=== PATIENT | female | born 1945 | race Caucasian/White ===

== ENCOUNTER 2022-07-23 16:22 | Inpatient (IN) | payer MEDICARE ==
[~2022-07-23] VITALS: Ht 162.6 cm; Wt 56.7 kg
[2022-07-23 16:41] VITALS: BP 120/40
--- NOTE | 2022-07-23 17:22 | NUR ---
patient admitted from [facility], alert, oriented x4, no sob, respiration are even nonlabored, dr Andrew made aware to do admission orders, and patient stated she has no home med list with her, she is going to try to get it from her later. no acute distress note at this time.
[2022-07-23] MEDS ORDERED: HEPA500034 (17:29)
[2022-07-23] MEDS ORDERED: ASPI-612 PO (17:29)
[2022-07-23] MEDS ORDERED: CEFT2VIA14 IV (17:30)
[2022-07-23] MEDS ORDERED: IPRA3AMP23 IH (17:31)
[2022-07-23] MEDS ORDERED: ONDANSETRON 4 MG/2 ML VIAL IV PRN (18:00)
[2022-07-23] MEDS ORDERED: MAGNESIUM HYDROXIDE 30 ML LIQUID UDC PO PRN (18:00)
[2022-07-23] MEDS ORDERED: ALBUTEROL SULFATE 1.25 MG/3 ML NEBU NEB PRN (18:00)
[2022-07-23] MEDS ORDERED: IPRATROPIUM BROMIDE 0.5 MG/2.5 ML NEBU NEB PRN (18:00)
[2022-07-23] MEDS ORDERED: DOCUSATE SODIUM 100 MG CAPSULE PO PRN (18:00)
[2022-07-23 18:30] LABS: HEMATOCRIT 24.9 % (31.2-41.9); MEAN CORPUSCULAR HEMOGLOBIN 38.6 uug (24.7-32.8); MEAN CORPUSCULAR VOLUME 118.6 fL (75.5-95.3); PLATELET COUNT (AUTO) 251 K/uL (179-408)
[2022-07-23 18:36] LABS: CREATININE 0.9 mg/dL (0.6-1.3); POTASSIUM 4.1 mmol/L (3.5-5.1)
[2022-07-23 18:40] LABS: MAGNESIUM 1.9 mg/dL (1.8-2.4); PHOSPHOROUS 3.3 mg/dL (2.5-4.9)
[2022-07-23] MEDS ORDERED: VANCOMYCIN IV 1,000 MG in IV DEXTROSE 5% 250 ML IV ONE (19:00)
--- NOTE | 2022-07-23 19:53 | NUR ---
Endorsed to next shift accordingly for pending admission.
[2022-07-23 20:00] VITALS: BP 124/68
[2022-07-23] MEDS: PIPERACILLIN SODIUM/TAZOBACTAM 3.375 G in IV DEXTROSE 5% 50 ML IV SCH ×2 (20:00→22:00)
[2022-07-23] MEDS: HEPARIN SODIUM,PORCINE 5,000 UNITS/ML VIAL SQ SCH (21:00)
[2022-07-23] MEDS: FOLIC ACID 1 MG TABLET PO SCH (21:45)
[2022-07-23] MEDS: CYANOCOBALAMIN 1,000 MCG TABLET PO SCH (21:45)
[2022-07-23] MEDS: THIAMINE HCL 100 MG TABLET PO SCH (21:45)
[2022-07-23] MEDS: methylPREDNISolone SOD SUCC 40 MG/ML VIAL IV SCH (22:30)
[2022-07-23] MEDS: PANTOPRAZOLE SODIUM 40 MG TABLET.DR PO SCH (22:50)
[2022-07-23] MEDS ORDERED: SOD FERRIC GLUC COMPLX/SUCROSE 125 MG in IV NORMAL SALINE 100 ML IV SCH (23:00)
[2022-07-24] VITALS (11 sets, daily range): BP systolic 123–157; BP diastolic 42–70
[2022-07-24] MEDS: PANTOPRAZOLE SODIUM 40 MG TABLET.DR PO SCH (06:28)
[2022-07-24] MEDS ORDERED: VANCOMYCIN IV 1,000 MG in IV DEXTROSE 5% 250 ML IV ONE (08:00)
[2022-07-24] MEDS ORDERED: CARVEDILOL 3.125 MG TABLET PO SCH (08:00)
--- NOTE | 2022-07-24 08:25 | NUR ---
SHIFT NOTE: RECEIVED HALF REPORT FROM AM NURSE PT SKIN IS ECCYMOSIS IN RT AND LT LOWER ARMS, AND RT LEGS HAS A SKIN TEAR PT HAS HX OF BREAST CA RT. DR RICHTER VISITED PATIENT AND ORDERED 1 UNIT OF PRBC'S PT HGB IS 8.1 NO SIGN RESPIRATORY DISTRESS NOTE: PT REQUESTED FOOD WHILE DR IN ROOM GAVE PT A HAM SANDWICH AND JUICE. PT HAS 02 2l NASAL CANNULA. PT ALSO HAS A RT BREAST CA INFORMED AM NURSE NO VITALS OR BLOOD DRAW. ENDORSED TO AM NURSE SHIFT FINDING
[2022-07-24 08:34] LABS: HEMATOCRIT 22.1 % (31.2-41.9)
[2022-07-24 08:36] LABS: MEAN CORPUSCULAR HEMOGLOBIN 39.1 uug (24.7-32.8); MEAN CORPUSCULAR VOLUME 117.1 fL (75.5-95.3); PLATELET COUNT (AUTO) 218 K/uL (179-408)
[2022-07-24 08:55] LABS: CREATININE 0.9 mg/dL (0.6-1.3); MAGNESIUM 2.2 mg/dL (1.8-2.4); POTASSIUM 4.2 mmol/L (3.5-5.1)
[2022-07-24] MEDS ORDERED: ASPIRIN EC 325 MG TABLET.DR PO SCH (09:00)
[2022-07-24] MEDS ORDERED: FUROSEMIDE 20 MG/2 ML VIAL IV SCH (09:00)
[2022-07-24] MEDS ORDERED: VANCOMYCIN IV 1,000 MG in IV DEXTROSE 5% 250 ML IV SCH (09:00)
[2022-07-24] MEDS ORDERED: ASPIRIN 325 MG TABLET PO SCH (09:00)
[2022-07-24] MEDS: methylPREDNISolone SOD SUCC 40 MG/ML VIAL IV SCH ×2 (09:27→20:37)
[2022-07-24] MEDS: THIAMINE HCL 100 MG TABLET PO SCH ×2 (09:27→17:08)
[2022-07-24] MEDS: CYANOCOBALAMIN 1,000 MCG TABLET PO SCH ×2 (09:27→17:08)
[2022-07-24] MEDS: FOLIC ACID 1 MG TABLET PO SCH ×2 (09:27→17:08)
[2022-07-24] MEDS: HEPARIN SODIUM,PORCINE 5,000 UNITS/ML VIAL SQ SCH ×2 (09:30→20:41)
[2022-07-24] MEDS ORDERED: PIPERACILLIN SODIUM/TAZOBACTAM 3.375 G in IV DEXTROSE 5% 50 ML IV SCH (10:00)
[2022-07-24] MEDS: SOD FERRIC GLUC COMPLX/SUCROSE 125 MG in IV NORMAL SALINE 100 ML IV SCH (10:08)
--- NOTE | 2022-07-24 10:12 | NUR ---
Lab reported critical lab value for Hemoglobin 7.4 and Troponin 61. Critical lab reported to Dr. Carlson.
[2022-07-24] MEDS: NICOTINE 14 MG/24HR PATCH TD SCH (11:27)
--- NOTE | 2022-07-24 17:53 | NUR ---
Pt. is receiving 1 unit of PRBC and noted to be stable. Vitals within normal range. No acute distress noted through out the shift. Compliance with the care given. Able to make the need known. Will keep monitoring the patient.
[2022-07-24] MEDS: VANCOMYCIN IV 750 MG in IV DEXTROSE 5% 250 ML IV SCH (20:36)
[2022-07-24] MEDS: PIPERACILLIN SODIUM/TAZOBACTAM 3.375 G in IV DEXTROSE 5% 50 ML IV SCH (20:43)
[2022-07-24] MEDS ORDERED: DILTIAZEM HCL 25 MG IV IV PRN (23:00)
[2022-07-24] MEDS: MORPHINE SULFATE 2 MG/1 ML DISP.SYRIN IV PRN (23:16)
[2022-07-25] VITALS: BP 135/70
[2022-07-25] MEDS: MELATONIN 3 MG TABLET PO PRN (00:11)
--- NOTE | 2022-07-25 02:00 | NUR ---
pt c/o chest pain ,monitor showed pt converted from sinus rhym to afib .md notifiedand orders given and carried out with good effect. pt was reassured that she is not dying.c/o nausea meds given for same and pt felt better . pt seen by hand stapler this am ,ekg ordered . pt in no further distress at this time.
[2022-07-25] MEDS: PIPERACILLIN SODIUM/TAZOBACTAM 3.375 G in IV DEXTROSE 5% 50 ML IV SCH ×4 (03:00→21:14)
[2022-07-25 04:00] VITALS: BP 124/75
[2022-07-25] MEDS: PANTOPRAZOLE SODIUM 40 MG TABLET.DR PO SCH (05:44)
[2022-07-25] MEDS ORDERED: FUROSEMIDE 40 MG/4 ML VIAL IV ONE (06:45)
[2022-07-25 07:38] LABS: HEMATOCRIT 26.2 % (31.2-41.9); MEAN CORPUSCULAR HEMOGLOBIN 35.6 uug (24.7-32.8); MEAN CORPUSCULAR VOLUME 106.3 fL (75.5-95.3); PLATELET COUNT (AUTO) 248 K/uL (179-408)
[2022-07-25 08:17] LABS: CREATININE 0.9 mg/dL (0.6-1.3); PHOSPHOROUS 3.2 mg/dL (2.5-4.9); POTASSIUM 4.6 mmol/L (3.5-5.1)
[2022-07-25] MEDS: ASPIRIN EC 81 MG TABLET.DR PO SCH (09:01)
[2022-07-25] MEDS: methylPREDNISolone SOD SUCC 40 MG/ML VIAL IV SCH ×2 (09:01→20:50)
[2022-07-25] MEDS: CYANOCOBALAMIN 1,000 MCG TABLET PO SCH ×2 (09:01→16:31)
[2022-07-25] MEDS: THIAMINE HCL 100 MG TABLET PO SCH ×2 (09:01→16:30)
[2022-07-25] MEDS: FOLIC ACID 1 MG TABLET PO SCH ×2 (09:02→16:31)
[2022-07-25] MEDS: HEPARIN SODIUM,PORCINE 5,000 UNITS/ML VIAL SQ SCH ×2 (09:03→21:08)
[2022-07-25] MEDS: NICOTINE 14 MG/24HR PATCH TD SCH (09:03)
[2022-07-25] MEDS: VANCOMYCIN IV 750 MG in IV DEXTROSE 5% 250 ML IV SCH ×2 (09:31→21:14)
[2022-07-25] MEDS: DILTIAZEM HCL CD 120 MG CAP.SR.24H PO SCH (10:11)
[2022-07-25] MEDS: SOD FERRIC GLUC COMPLX/SUCROSE 125 MG in IV NORMAL SALINE 100 ML IV SCH (10:50)
[2022-07-25] MEDS: ACETAMINOPHEN 325 MG TABLET PO PRN (10:55)
[2022-07-25 11:01] VITALS: BP 163/56
[2022-07-25] MEDS ORDERED: SWABABLE VALVE TRANSFER SET EA MC ONE (12:46)
[2022-07-25] MEDS ORDERED: IOHEXOL 350 100 ML INFUS..BTL ONE (12:47)
[2022-07-25] MEDS ORDERED: IV NORMAL SALINE 250 ML IV ONE (12:47)
[2022-07-25] MEDS: PROTEIN SUPPLEMENT (PROSTAT) 30 ML LIQUID PO SCH ×3 (14:27→16:32)
[2022-07-25] MEDS: ENSURE ENLIVE (VAN) 240 ML LIQUID PO SCH (16:31)
[2022-07-25 16:45] VITALS: BP 145/62
--- NOTE | 2022-07-25 17:50 | NUR ---
Pt. has been stable through out the shift. No c/o pain. Able to make the need known. No acute distress noted. Call light within reach. No c/o dizziness, headache and nausea or vomiting noted. Skin treatment done and pt. was able to tolerated. Will keep monitoring the resident.
[2022-07-25] MEDS: ATORVASTATIN 40 MG TABLET PO SCH (20:50)
[2022-07-25 20:59] VITALS: BP 170/55
[2022-07-26 00:27] VITALS: BP 179/50
[2022-07-26] MEDS: MORPHINE SULFATE 2 MG/1 ML DISP.SYRIN IV PRN ×2 (00:33→11:41)
[2022-07-26] MEDS: PIPERACILLIN SODIUM/TAZOBACTAM 3.375 G in IV DEXTROSE 5% 50 ML IV SCH ×4 (03:17→21:01)
[2022-07-26 05:12] VITALS: BP 161/49
[2022-07-26] MEDS: PANTOPRAZOLE SODIUM 40 MG TABLET.DR PO SCH (06:28)
[2022-07-26] MEDS: PROTEIN SUPPLEMENT (PROSTAT) 30 ML LIQUID PO SCH ×4 (08:16→16:44)
[2022-07-26] MEDS: ENSURE ENLIVE (VAN) 240 ML LIQUID PO SCH ×2 (08:16→16:44)
[2022-07-26 08:24] LABS: MAGNESIUM 2.2 mg/dL (1.8-2.4); PHOSPHOROUS 4.4 mg/dL (2.5-4.9); POTASSIUM 4.6 mmol/L (3.5-5.1)
[2022-07-26] MEDS: HEPARIN SODIUM,PORCINE 5,000 UNITS/ML VIAL SQ SCH ×2 (08:50→21:03)
[2022-07-26 08:59] LABS: HEMATOCRIT 27.8 % (31.2-41.9); MEAN CORPUSCULAR VOLUME 106.9 fL (75.5-95.3); PLATELET COUNT (AUTO) 221 K/uL (179-408)
[2022-07-26] MEDS: CYANOCOBALAMIN 1,000 MCG TABLET PO SCH ×2 (08:59→16:44)
[2022-07-26] MEDS: FOLIC ACID 1 MG TABLET PO SCH ×2 (08:59→16:44)
[2022-07-26] MEDS: THIAMINE HCL 100 MG TABLET PO SCH ×2 (08:59→16:44)
[2022-07-26] MEDS: NICOTINE 14 MG/24HR PATCH TD SCH (09:00)
[2022-07-26] MEDS: ASPIRIN EC 81 MG TABLET.DR PO SCH (09:09)
[2022-07-26] MEDS: DILTIAZEM HCL CD 120 MG CAP.SR.24H PO SCH (09:15)
[2022-07-26] MEDS: methylPREDNISolone SOD SUCC 40 MG/ML VIAL IV SCH ×2 (10:03→21:02)
[2022-07-26 10:42] LABS: NEUTROPHILS % (MANUAL) 0 % (42-75)
[2022-07-26] MEDS: SOD FERRIC GLUC COMPLX/SUCROSE 125 MG in IV NORMAL SALINE 100 ML IV SCH (11:33)
[2022-07-26] MEDS: VANCOMYCIN IV 750 MG in IV DEXTROSE 5% 250 ML IV SCH (11:34)
[2022-07-26 11:45] VITALS: BP 106/70
[2022-07-26] MEDS ORDERED: FUROSEMIDE 20 MG/2 ML VIAL IV ONE (14:15)
[2022-07-26] MEDS: FUROSEMIDE 20 MG/2 ML VIAL IV SCH (14:41)
[2022-07-26] MEDS ORDERED: ENALAPRILAT DIHYDRATE 1.25 MG/1 ML VIAL IV PRN (15:00)
[2022-07-26] MEDS ORDERED: hydrALAZINE HCL 20 MG/1 ML VIAL IV PRN (15:00)
[2022-07-26] MEDS ORDERED: ACET325T53 PO (15:32)
[2022-07-26] MEDS ORDERED: DOCU-141 PO (15:32)
[2022-07-26] MEDS ORDERED: HYDR-3972 PO (15:32)
[2022-07-26] MEDS ORDERED: HYDR-894 PO (15:32)
[2022-07-26] MEDS ORDERED: VANC750F IV (15:32)
[2022-07-26] MEDS ORDERED: DILT120C87 PO (15:32)
[2022-07-26] MEDS ORDERED: FOLI1TAB94 PO (15:32)
[2022-07-26] MEDS ORDERED: ATOR40TA PO (15:32)
[2022-07-26] MEDS ORDERED: ALBU1.25 NEB (15:32)
[2022-07-26] MEDS ORDERED: NICO-671 TD (15:32)
[2022-07-26] MEDS ORDERED: FURO-152 PO (15:32)
[2022-07-26] MEDS ORDERED: HEPA50007 SQ (15:32)
[2022-07-26] MEDS ORDERED: CYAN-51 PO (15:32)
[2022-07-26] MEDS ORDERED: PIPE3.3749 IV (15:32)
[2022-07-26] MEDS ORDERED: CAPT25TA3 PO (15:32)
[2022-07-26] MEDS ORDERED: Morphine Sulfate Inj IV (15:32)
[2022-07-26] MEDS ORDERED: MELA3TAB41 PO (15:32)
[2022-07-26] MEDS ORDERED: Lactose-Free Food PO (15:32)
[2022-07-26] MEDS ORDERED: ASPI-618 PO (15:32)
[2022-07-26] MEDS ORDERED: IPRA0.2S6 NEB (15:32)
[2022-07-26] MEDS ORDERED: THIA100T13 PO (15:32)
[2022-07-26] MEDS ORDERED: DILT5VIA9 IV (15:32)
[2022-07-26] MEDS ORDERED: HYDR20VI4 IV (15:32)
[2022-07-26] MEDS ORDERED: MAGN400O6 PO (15:32)
[2022-07-26] MEDS ORDERED: PROT30LI PO (15:32)
[2022-07-26] MEDS ORDERED: ENAL1.2515 IV (15:32)
[2022-07-26] MEDS ORDERED: PANT40TA49 PO (15:32)
[2022-07-26] MEDS ORDERED: RXVAN XX (15:32)
[2022-07-26] MEDS ORDERED: FERR325T28 PO (15:32)
[2022-07-26] MEDS ORDERED: ONDA4VIA23 IV (15:32)
[2022-07-26 15:45] VITALS: BP 159/56
[2022-07-26] MEDS: hydrALAZINE HCL 20 MG/1 ML VIAL IV PRN ×2 (16:18→23:42)
--- NOTE | 2022-07-26 17:02 | NUR ---
Pt. has been stable during the shift and able to make the need known. Skin treatment done. Compliance with the care given. Call light within reach. Noted pt. to have BP 166/69 and HR 62. Reported to Dr. Carlson and received order for Hydralazine. medication was administered and BP rechecked and it was 138/69 HR 74. Will keep monitoring the patient.
[2022-07-26] MEDS: ATORVASTATIN 40 MG TABLET PO SCH (21:00)
[2022-07-26] MEDS ORDERED: GUAIFENESIN/D-METHORPHAN 10 ML UDC (DIABETIC FORMULA) PO PRN (22:45)
[2022-07-26 23:16] VITALS: BP 169/58
--- NOTE | 2022-07-26 23:32 | NUR ---
Patient is stable, no sign of respiratory distress observed. All of PM meds as well as PRN have been administered she tolerated them very well. Report have been communicate to RN who is relieving while I am leaving the premise. She is now resting in her room, no complaint of pain or discomfort.
[2022-07-26] MEDS: MELATONIN 3 MG TABLET PO PRN (23:43)
[2022-07-27] VITALS: BP 136/41
--- NOTE | 2022-07-27 | NUR ---
Received Pt from Marquita ([facility]). Pt is A&Ox4 and is cooperative. Pt has a patent midline JOCELINE. 2L O2 via NC. SR on tele. Safety measures in place. Will continue to monitor.
[2022-07-27] MEDS: VANCOMYCIN IV 750 MG in IV DEXTROSE 5% 250 ML IV SCH (00:16)
[2022-07-27] MEDS: GUAIFENESIN/DEXTROMETHORPHAN 5 ML UDC PO PRN ×2 (00:22→06:02)
[2022-07-27] MEDS: PIPERACILLIN SODIUM/TAZOBACTAM 3.375 G in IV DEXTROSE 5% 50 ML IV SCH ×4 (03:07→21:55)
[2022-07-27 04:00] VITALS: BP 139/42
[2022-07-27] MEDS: PANTOPRAZOLE SODIUM 40 MG TABLET.DR PO SCH (06:02)
--- NOTE | 2022-07-27 06:38 | NUR ---
End of shift note: Pt is A&Ox4 and is cooperative. Pt has a patent midline JOCELINE. 2L O2 via [employer] on [facility]. Pt's bed scale is not working. Going to use standing scale, but it was out of battery. Will endorse this to day shift to get the daily weight. Safety measures in place. Will continue to monitor. Addendum: 07/27/22 at 0711 by JESUS HICKMAN RN Was able to get bed scale working.
[2022-07-27 07:05] LABS: HEMATOCRIT 26.4 % (31.2-41.9); MEAN CORPUSCULAR HEMOGLOBIN 35.9 uug (24.7-32.8); MEAN CORPUSCULAR VOLUME 106.7 fL (75.5-95.3); PLATELET COUNT (AUTO) 212 K/uL (179-408)
[2022-07-27 07:16] LABS: MAGNESIUM 2.1 mg/dL (1.8-2.4); PHOSPHOROUS 4.6 mg/dL (2.5-4.9); POTASSIUM 3.9 mmol/L (3.5-5.1)
[2022-07-27] MEDS: THIAMINE HCL 100 MG TABLET PO SCH ×2 (09:29→17:06)
[2022-07-27] MEDS: CYANOCOBALAMIN 1,000 MCG TABLET PO SCH ×2 (09:29→17:06)
[2022-07-27] MEDS: ASPIRIN EC 81 MG TABLET.DR PO SCH (09:29)
[2022-07-27] MEDS: methylPREDNISolone SOD SUCC 40 MG/ML VIAL IV SCH ×2 (09:29→20:40)
[2022-07-27] MEDS: FOLIC ACID 1 MG TABLET PO SCH ×2 (09:34→17:06)
[2022-07-27] MEDS: FUROSEMIDE 20 MG/2 ML VIAL IV SCH (09:34)
[2022-07-27] MEDS: DILTIAZEM HCL CD 120 MG CAP.SR.24H PO SCH (09:34)
[2022-07-27] MEDS: NICOTINE 14 MG/24HR PATCH TD SCH (09:35)
[2022-07-27] MEDS: ENSURE ENLIVE (VAN) 240 ML LIQUID PO SCH ×2 (09:35→17:00)
[2022-07-27] MEDS: HEPARIN SODIUM,PORCINE 5,000 UNITS/ML VIAL SQ SCH ×2 (09:35→20:40)
[2022-07-27] MEDS: PROTEIN SUPPLEMENT (PROSTAT) 30 ML LIQUID PO SCH ×4 (09:36→17:00)
[2022-07-27] MEDS: SOD FERRIC GLUC COMPLX/SUCROSE 125 MG in IV NORMAL SALINE 100 ML IV SCH (09:47)
[2022-07-27 11:32] VITALS: BP 198/73
[2022-07-27 12:40] LABS: HEMATOCRIT 32.9 % (31.2-41.9); MEAN CORPUSCULAR HEMOGLOBIN 35.5 uug (24.7-32.8); MEAN CORPUSCULAR VOLUME 107.2 fL (75.5-95.3); PLATELET COUNT (AUTO) 293 K/uL (179-408)
[2022-07-27] MEDS ORDERED: AMIODARONE HCL IV 450 MG in IV DEXTROSE 5% 250 ML IV PRN (12:45)
[2022-07-27] MEDS ORDERED: AMIODARONE HCL IV 150 MG in IV DEXTROSE 5% 100 ML IV ONE (12:45)
[2022-07-27] MEDS ORDERED: DILTIAZEM HCL 25 MG IV IV PRN (12:45)
--- NOTE | 2022-07-27 13:00 | NUR ---
pt complained of chest pain and her heart rate was in 150's afib. Called Rapid response. Did EKG, CBC, tropinin, lactic acid on her. Gave her Diltiazem iv push PRN. BP 134/63, pulse 118. Doctor Annie and Dr Carlson are aware of all of this. Pt now is feeling better. Became LAURO. Nickie BASILIO took over the patient now.
[2022-07-27] MEDS: HYDROCODONE/APAP 5-325MG TABLET PO PRN (13:30)
[2022-07-27] MEDS: AMIODARONE HCL IV 450 MG in IV DEXTROSE 5% 250 ML IV PRN ×2 (13:40→22:54)
[2022-07-27 15:24] LABS: BILIRUBIN,DIRECT 0.4 mg/dL (0.0-0.2)
[2022-07-27 15:26] LABS: ABG BASE EXCESS 5.3 mmol/L; ABG HCO3 27.6 mmol/L; ABG PCO2 32.3 mmHg (35.0-45.0); ABG PH 7.549 (7.350-7.450); ABG PO2 69.4 mmHg (75.0-100.0); ABG SITE LEFT RADIAL; ABG TOTAL HEMOGLOBIN 11.4 G/dL (12.0-16.0); COHb 0.7 % (0.5-1.5); MetHb 0.3 % (0.0-1.5); O2Hb 93.8 % (94.0-97.0); VENT MODE Nasal Cannula
[2022-07-27 15:48] VITALS: BP 119/59
[2022-07-27 20:00] VITALS: BP 92/53
--- NOTE | 2022-07-27 20:10 | NUR ---
Cardizem drip change to 0.5mg/min per protocol. HR at 60/min at this time. Patient AAOx4. No signs of distress. No complain of pain or SOB. O2 at 2LPM via NC in place. Continue to monitor.
[2022-07-27] MEDS: ATORVASTATIN 40 MG TABLET PO SCH (20:41)
[2022-07-27] MEDS: MELATONIN 3 MG TABLET PO PRN (23:31)
[2022-07-28] VITALS: BP 108/62
[2022-07-28] MEDS: PIPERACILLIN SODIUM/TAZOBACTAM 3.375 G in IV DEXTROSE 5% 50 ML IV SCH ×4 (03:33→21:10)
[2022-07-28] MEDS: VANCOMYCIN IV 750 MG in IV DEXTROSE 5% 250 ML IV SCH ×2 (05:09→23:24)
[2022-07-28] MEDS: HYDROCODONE/APAP 5-325MG TABLET PO PRN (05:10)
[2022-07-28 05:51] VITALS: BP 139/49
--- NOTE | 2022-07-28 05:59 | NUR ---
Informed Dr. Lam that patient converted to NSR at 2300 and HR is now sustaining on the mid 50's. Awaiting for any reply.
[2022-07-28] MEDS: PANTOPRAZOLE SODIUM 40 MG TABLET.DR PO SCH (06:18)
--- NOTE | 2022-07-28 06:23 | NUR ---
Dr. Lam with order to discontinue Amiodarone drip. Order noted and carried out
[2022-07-28 06:50] LABS: HEMATOCRIT 29.3 % (31.2-41.9); MEAN CORPUSCULAR HEMOGLOBIN 36.4 uug (24.7-32.8); MEAN CORPUSCULAR VOLUME 107.2 fL (75.5-95.3); PLATELET COUNT (AUTO) 227 K/uL (179-408)
[2022-07-28 07:38] LABS: CREATININE 1.3 mg/dL (0.6-1.3); MAGNESIUM 2.3 mg/dL (1.8-2.4); PHOSPHOROUS 4.7 mg/dL (2.5-4.9); POTASSIUM 3.7 mmol/L (3.5-5.1)
[2022-07-28] MEDS: PROTEIN SUPPLEMENT (PROSTAT) 30 ML LIQUID PO SCH ×4 (08:00→16:11)
[2022-07-28] MEDS: ENSURE ENLIVE (VAN) 240 ML LIQUID PO SCH ×2 (08:00→16:11)
[2022-07-28] MEDS: methylPREDNISolone SOD SUCC 40 MG/ML VIAL IV SCH ×2 (09:24→21:08)
[2022-07-28] MEDS: FOLIC ACID 1 MG TABLET PO SCH ×2 (09:25→16:09)
[2022-07-28] MEDS: NICOTINE 14 MG/24HR PATCH TD SCH (09:25)
[2022-07-28] MEDS: ASPIRIN EC 81 MG TABLET.DR PO SCH (09:25)
[2022-07-28] MEDS: THIAMINE HCL 100 MG TABLET PO SCH ×2 (09:25→16:09)
[2022-07-28] MEDS: CYANOCOBALAMIN 1,000 MCG TABLET PO SCH ×2 (09:26→16:09)
[2022-07-28] MEDS: AMIODARONE HCL 200 MG TABLET PO SCH ×2 (09:27→21:08)
[2022-07-28] MEDS: DILTIAZEM HCL CD 120 MG CAP.SR.24H PO SCH (09:46)
[2022-07-28] MEDS: HEPARIN SODIUM,PORCINE 5,000 UNITS/ML VIAL SQ SCH ×2 (09:55→21:09)
[2022-07-28] MEDS: SOD FERRIC GLUC COMPLX/SUCROSE 125 MG in IV NORMAL SALINE 100 ML IV SCH (10:58)
[2022-07-28 11:04] VITALS: BP 115/64
[2022-07-28 15:50] VITALS: BP 170/59
[2022-07-28] MEDS: hydrALAZINE HCL 20 MG/1 ML VIAL IV PRN (16:11)
--- NOTE | 2022-07-28 19:35 | NUR ---
Dr Carlson into visit with new order made and will carry out.
[2022-07-28] MEDS ORDERED: MELATONIN 3 MG TABLET PO PRN ×2 (19:45→21:15)
[2022-07-28 20:57] VITALS: BP 158/53
[2022-07-28] MEDS: ATORVASTATIN 40 MG TABLET PO SCH (21:08)
[2022-07-28] MEDS: ACETAMINOPHEN 325 MG TABLET PO PRN (21:55)
[2022-07-29 00:42] VITALS: BP 175/59
[2022-07-29] MEDS: hydrALAZINE HCL 20 MG/1 ML VIAL IV PRN ×2 (00:46→11:35)
[2022-07-29 01:33] VITALS: BP 152/54
[2022-07-29] MEDS: PIPERACILLIN SODIUM/TAZOBACTAM 3.375 G in IV DEXTROSE 5% 50 ML IV SCH ×3 (03:26→16:27)
[2022-07-29 04:50] VITALS: BP 157/47
--- NOTE | 2022-07-29 05:58 | NUR ---
No adverse effect noted from IV antibiotics. Midline on left upper arm and PIV on left wrist remains intact and patent. O2 at 2LPM via NC.O2 sat at 95%. Assisted to BSC per request. Other needs assessed and attended to. Safety measure maintained and call light within reached.
--- NOTE | 2022-07-29 06:00 | NUR ---
NSR on tele with HR of 74/min.
[2022-07-29] MEDS: PANTOPRAZOLE SODIUM 40 MG TABLET.DR PO SCH (06:04)
[2022-07-29 07:27] LABS: HEMATOCRIT 27.8 % (31.2-41.9); MEAN CORPUSCULAR HEMOGLOBIN 35.7 uug (24.7-32.8); MEAN CORPUSCULAR VOLUME 106.9 fL (75.5-95.3); PLATELET COUNT (AUTO) 211 K/uL (179-408)
[2022-07-29 07:42] LABS: MAGNESIUM 2.2 mg/dL (1.8-2.4); PHOSPHOROUS 4.1 mg/dL (2.5-4.9); POTASSIUM 3.5 mmol/L (3.5-5.1)
[2022-07-29] MEDS: HEPARIN SODIUM,PORCINE 5,000 UNITS/ML VIAL SQ SCH (08:09)
[2022-07-29] MEDS: methylPREDNISolone SOD SUCC 40 MG/ML VIAL IV SCH (08:10)
[2022-07-29] MEDS: THIAMINE HCL 100 MG TABLET PO SCH ×2 (08:10→16:26)
[2022-07-29] MEDS: NICOTINE 14 MG/24HR PATCH TD SCH (08:11)
[2022-07-29] MEDS: CYANOCOBALAMIN 1,000 MCG TABLET PO SCH ×2 (08:11→16:26)
[2022-07-29] MEDS: ASPIRIN EC 81 MG TABLET.DR PO SCH (08:11)
[2022-07-29] MEDS: DILTIAZEM HCL CD 120 MG CAP.SR.24H PO SCH (08:11)
[2022-07-29] MEDS: AMIODARONE HCL 200 MG TABLET PO SCH (08:11)
[2022-07-29] MEDS: FOLIC ACID 1 MG TABLET PO SCH ×2 (08:11→16:26)
[2022-07-29] MEDS: PROTEIN SUPPLEMENT (PROSTAT) 30 ML LIQUID PO SCH ×3 (08:12→15:41)
[2022-07-29] MEDS: ENSURE ENLIVE (VAN) 240 ML LIQUID PO SCH ×2 (08:12→16:27)
[2022-07-29 11:02] VITALS: BP 163/49
[2022-07-29 11:22] LABS: BILIRUBIN,DIRECT 0.2 mg/dL (0.0-0.2); BILIRUBIN,TOTAL 0.6 mg/dL (0.2-1.0)
--- NOTE | 2022-07-29 12:00 | NUR ---
CRITICAL VALUE REPORTED LACTIC ACID 2.3. AWARE.
[2022-07-29] MEDS ORDERED: AMIO200T5 PO (13:48)
[2022-07-29] MEDS: ACETAMINOPHEN 325 MG TABLET PO PRN (14:27)
[2022-07-29 14:59] VITALS: BP 163/44
[2022-07-29] MEDS ORDERED: POTASSIUM CHLORIDE 20 MEQ TAB.PRT.SR PO ONE (15:30)
--- NOTE | 2022-07-29 16:13 | NUR ---
report [facility]
[2022-07-29 16:27] VITALS: BP 163/44
--- NOTE | 2022-07-29 17:45 | NUR ---
PT IS DISCHARGE. PT WILL BE TRANSFER TO [facility]. 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 IV ACCESS PATENT AND INTACT. PT WILL CONT ABX TX ON THE SNF. ALL BELONGINGS ACCOUNTED FOR.
== END 2022-07-29 17:55 | DRG 871 ==
LOC: TELE3 16:22 → TELE-TD3 07-27 12:44 → TELE3 07-28 16:14
PROVIDERS: ADMIT Internal Medicine; ATTEND Internal Medicine
PROC: 30233N1 Transfusion of Nonautologous Red Blood Cells into Peripheral Vein, Percutaneous Approach (ICD-10-PCS; principal; 2022-07-24)
PROC: 05H633Z Insertion of Infusion Device into Left Subclavian Vein, Percutaneous Approach (ICD-10-PCS; 2022-07-24)
PROC: B547ZZA Ultrasonography of Left Subclavian Vein, Guidance (ICD-10-PCS; 2022-07-24)
DX: A41.9 Sepsis, unspecified organism (principal); I21.A1 Myocardial infarction type 2; I50.33 Acute on chronic diastolic (congestive) heart failure; J18.1 Lobar pneumonia, unspecified organism; J96.20 Acute and chronic respiratory failure, unspecified whether with hypoxia or hypercapnia; J44.0 Chronic obstructive pulmonary disease with (acute) lower respiratory infection; J44.1 Chronic obstructive pulmonary disease with (acute) exacerbation; E87.3 Alkalosis; I48.91 Unspecified atrial fibrillation; E86.0 Dehydration; K21.9 Gastro-esophageal reflux disease without esophagitis; Z20.822 Contact with and (suspected) exposure to COVID-19; Z85.3 Personal history of malignant neoplasm of breast; I48.0 Paroxysmal atrial fibrillation; S40.022A Contusion of left upper arm, initial encounter; S40.021A Contusion of right upper arm, initial encounter; W19.XXXA Unspecified fall, initial encounter; Y93.9 Activity, unspecified; Y92.009 Unspecified place in unspecified non-institutional (private) residence as the place of occurrence of the external cause; S81.811A Laceration without foreign body, right lower leg, initial encounter; D50.9 Iron deficiency anemia, unspecified; E78.5 Hyperlipidemia, unspecified; I11.0 Hypertensive heart disease with heart failure; F17.210 Nicotine dependence, cigarettes, uncomplicated; Z79.82 Long term (current) use of aspirin; Z91.81 History of falling; Z90.711 Acquired absence of uterus with remaining cervical stump; Z85.07 Personal history of malignant neoplasm of pancreas
CPT/HCPCS: 36415; 36600; 70030-TC; 71045; 71275; 83550; 83605; 83735; 84100; 84484; 85025; 86850; 86900; 86901; 86920; 87040; 93005; 93307; A4663; A6213; G0378; J0282; J0360; J1644; J1940; J2270; J2405; J2543; J2916; J2920; J3370; J3490; J7040; J7050; P9016; Q9967